=== PATIENT | female | born 1960 | race Caucasian/White ===

== ENCOUNTER → 2020-12-11 | Outpatient (CLI) | payer MEDICARE, OTHER | END | disposition home or self-care (01) | DX: Z01.818 Encounter for other preprocedural examination (principal) ==

== ENCOUNTER 2021-11-04 07:39 | Day surgery (SDC) | payer MEDICARE, OTHER ==
[2021-11-03 10:42] VITALS: BMI 34.2
[~2021-11-04 07:39] MED LIST: ALPRAZolam 0.25 MG TAB PO PRN; ALPRAZolam 0.5 MG TAB PO PRN; ASPIRIN 325 MG TAB PO STA; NITROGLYCERIN SL TABS 0.4 MG TAB SUBLINGUAL PRN; SODIUM CHLORIDE 0.9% 1,000 ML in EMPTY BAG 1 BAG IV SCH
[2021-11-04 08:14] LABS: Glucose,Whole Blood 120 mg/dL (75-99)
[2021-11-04 08:14] LABS: Basophils # (A) 0.1 k/uL (0-0.2); Basophils % (A) 1 %; Eosinophils # (A) 0.3 k/uL (0-0.7); Eosinophils % (A) 5 %; HCT 42.7 % (34.0-46.0); HGB 14.4 gm/dL (11.4-16.0); Lymphocytes # (A) 2.1 k/uL (1.0-4.8); Lymphocytes % (A) 32 %; MCH 30.4 pg (25.0-35.0); MCHC 33.8 g/dL (31.0-37.0); MCV 89.7 fL (80.0-100.0); Mean Platelet Volume 9.2; Monocytes # (A) 0.4 k/uL (0-1.0); Monocytes % (A) 6 %; Neutrophils # (A) 3.6 k/uL (1.3-7.7); Neutrophils % (A) 54 %; Platelet Count 220 k/uL (150-450); RBC 4.76 m/uL (3.80-5.40); RDW 13.3 % (11.5-15.5); WBC 6.7 k/uL (3.8-10.6)
[2021-11-04 08:27] LABS: Calcium 8.9 mg/dL (8.4-10.2); Potassium 3.8 mmol/L (3.5-5.1)
[2021-11-04 09:04] VITALS: RESP 16; TEMP 97.6
[2021-11-04] MEDS ORDERED: VERAPAMIL 2.5 MG/ML 2 ML AMP ONE (09:06)
[2021-11-04] MEDS ORDERED: fentaNYL (PF) 50 MCG/ML 2 ML AMP ONE (09:19)
[2021-11-04] MEDS ORDERED: HEPARIN SODIUM 1,000 UN/ML (10ML VL) ONE (09:19)
[2021-11-04] MEDS ORDERED: fentaNYL (PF) 50 MCG/ML 2 ML AMP IV ONE (09:39)
[2021-11-04] MEDS ORDERED: MIDAZOLAM 2 MG/2 ML VIAL IV ONE (09:39)
[2021-11-04] MEDS ORDERED: LIDOCAINE 1% INJ 10MG/ML (5 ML VIAL-PF) SQ ONE (09:40)
[2021-11-04] MEDS: VERAPAMIL SYRINGE (5 MG/10 ML) INTRAARTER ONE ×2 (09:47→09:52)
[2021-11-04] MEDS ORDERED: HEPARIN SODIUM 1,000 UN/ML (10ML VL) IV ONE (09:49)
[2021-11-04] MEDS ORDERED: IOPAMIDOL-370 125ML BTL INJ ONE (09:56)
--- NOTE | 2021-11-04 10:02 | P.CARDCATH ---
Description of Procedure: PROCEDURES PERFORMED: Left heart catheterization, bilateral coronary angiography INDICATION: Abnormal stress test CONSENT:I have discussed the risks, benefits and alternative therapies for the above-mentioned procedure and for both sedation/analgesia as well as necessary blood product administration, if indicated, as they pertain to this patient. The patient has indicated understanding and acceptance of the risks and procedures discussed. PROCEDURE: After the risks, benefits and alternatives of the above mentioned procedure explained in detail with the patient, informed consent was obtained. Patient was taken to the catheterization lab and prepped and draped in usual fashion. 1% lidocaine was used to anesthetize the right radial artery. A 6- [place] sheath was placed in the right radial artery using modified Seldinger technique. Left coronary angiography was performed with a 5-[place] JL 3.5 catheter and right coronary angiography was performed with a 5-[place] JR5 catheter in various views. A 5-[place] FR5 catheter was inserted into the left ventricle and pressure measurements were obtained. The right radial sheath was removed and a TR band was placed with hemostasis achieved. The patient tolerated the procedure well. Patient was transported back to the post catheterization holding area in stable condition. Conscious Sedation: Patient was monitored under the direct supervision of vision of myself for conscious sedation using Versed and fentanyl for a total duration of 16 minutes HEMODYNAMICS: Ao: 139/71 LV: 134/3, LBEDP 21 SELECTIVE CORONARY ARTERIOGRAPHY: LEFT MAIN: The left main is a large caliber vessel which bifurcates into the LAD and circumflex. There is no significant stenosis. LEFT ANTERIOR DESCENDING CORONARY ARTERY: LAD is a large caliber vessel which wraps around to the apex. There is no significant stenosis. LEFT CIRCUMFLEX CORONARY ARTERY: Left circumflex is a moderate caliber vessel without significant stenosis. RIGHT CORONARY ARTERY: The right coronary artery is a large caliber vessel which gives off a PDA and PLV branch and is the dominant vessel. There is no signif icant stenosis. FINAL IMPRESSION: 1. Normal coronary arteries as described above. 2. Elevated left sided filling pressures PLAN: 1. Aggressive risk factor modification per most recent ACC/AHA guidelines. 2. Follow-up in the office in 1-2 weeks. 3. Trial Lasix given elevated left sided filling pressures.
[2021-11-04 15:16] VITALS: BP 156/67; PULSE 66
== END 2021-11-04 14:03 | disposition home or self-care (01) ==
LOC: CATHCVL 07:39
PROVIDERS: ATTEND Internal Medicine
DX: I50.1 Left ventricular failure, unspecified (principal); Z20.822 Contact with and (suspected) exposure to COVID-19
CPT/HCPCS: 93458; 80048; 85025; 87635; C1894; J2250; J2001; J3010; J1644; Q9967

== ENCOUNTER → 2022-04-23 | Outpatient (CLI) | payer MEDICARE, OTHER ==
--- NOTE | 2022-04-23 16:12 | XR ---
EXAMINATION TYPE: XR chest 2V DATE OF EXAM: 04/23/2022 COMPARISON: 12/11/2020 HISTORY: Shortness of breath TECHNIQUE: Frontal and lateral views of the chest are obtained. FINDINGS: Scattered senescent parenchymal changes noted. Hyperinflation compatible with COPD. No evidence for infiltrate. No evidence for atelectasis. Heart size is stable. Mediastinal structures are stable and grossly unremarkable. No evidence for hilar prominence. Degenerative changes dorsal spine. IMPRESSION: 1. No evidence for acute pulmonary disease.
== END | disposition home or self-care (01) ==
LOC: RADXRMAIN 14:19
PROVIDERS: ATTEND Internal Medicine
DX: J04.2 Acute laryngotracheitis (principal)
CPT/HCPCS: 71046

== ENCOUNTER → 2022-08-31 | Outpatient (CLI) | payer MEDICARE, OTHER ==
--- NOTE | 2022-09-01 07:28 | XR ---
EXAMINATION TYPE: XR ankle complete RT DATE OF EXAM: 08/31/2022 COMPARISON: None HISTORY: Pain lateral right ankle TECHNIQUE: 3 view right ankle FINDINGS: Ankle mortise is intact. No acute fractures or dislocations are evident. Soft tissues appea r normal. Follow up exams can be performed 7-10 days from acute trauma for continued pain IMPRESSION: 1. No acute osseous abnormality right ankle.
== END | disposition home or self-care (01) ==
LOC: RADXRMAIN 15:57
PROVIDERS: ATTEND Internal Medicine
DX: M25.571 Pain in right ankle and joints of right foot (principal)

== ENCOUNTER → 2022-09-01 | Outpatient (CLI) | payer MEDICARE, OTHER ==
[2022-09-01 17:04] LABS: ALT 18 U/L (8-44); AST 13 U/L (13-35); African American GFR (CKD) 80.5 (60.0-200.0); Albumin 4.7 g/dL (3.8-4.9); Albumin/Globulin Ratio 1.74 (1.60-3.17); Alkaline Phosphatase 108 U/L (41-126); BUN/Creat Ratio 16.67 Ratio (12.00-20.00); Carbon Dioxide 22.3 mmol/L (20.0-27.5); Chloride 105 mmol/L (96-109); Chol/HDL Ratio 2.59 Ratio; Globulin 2.7 g/dL (1.6-3.3); Glucose 124 mg/dL (70-110); LDL Cholesterol,Calculated 83.7 mg/dL (0.0-131.0); Non-African American GFR(CKD) 69.5 (60.0-200.0); Potassium 4.4 mmol/L (3.5-5.5); Sodium 142 mmol/L (135-145); Total Protein 7.4 g/dL (6.2-8.2); VLDL Calculation 13.78 mg/dL (5.00-40.00)
[2022-09-01 17:26] LABS: Basophils # (A) 0.07 X 10*3/uL (0.00-0.10); Basophils % (A) 0.6 %; Eosinophils # (A) 0.08 X 10*3/uL (0.04-0.35); Eosinophils % (A) 0.7 %; HCT 46.8 % (37.2-46.3); HGB 15.5 g/dL (12.0-15.0); Immature Grans, Automated 0.3 %; Lymphocytes # (A) 1.74 X 10*3/uL (0.90-5.00); Lymphocytes % (A) 14.6 %; MCH 30.1 pg (27.0-32.0); MCHC 33.1 g/dL (32.0-37.0); MCV 90.9 fL (80.0-97.0); Mean Platelet Volume 12.4 fL (9.5-12.2); Monocytes # (A) 0.68 X 10*3/uL (0.20-1.00); Monocytes % (A) 5.7 %; NRBC Per 100 WBC 0 /100 WBCS (0.0-0.0); Neutrophils # (A) 9.32 X 10*3/uL (1.80-7.70); Neutrophils % (A) 78.1 %; Platelet Count 259 X 10*3/uL (140-440); RBC 5.15 X 10*6/uL (4.10-5.20); RDW 12.8 % (11.5-14.5); WBC 11.93 X 10*3/uL (4.50-10.00)
== END | disposition home or self-care (01) ==
LOC: LABWHC1 09:53
PROVIDERS: ATTEND Internal Medicine
DX: Z00.00 Encounter for general adult medical examination without abnormal findings (principal); Z11.59 Encounter for screening for other viral diseases; M85.80 Other specified disorders of bone density and structure, unspecified site; R73.03 Prediabetes
CPT/HCPCS: 36415; 80053; 80061; 82306; 83036; 84443; 85025; 86803

== ENCOUNTER 2023-01-27 20:08 | Emergency (ER) | payer MEDICARE, OTHER ==
[2023-01-27 20:43] LABS: Glucose,Whole Blood 108 mg/dL (70-110)
[2023-01-27] MEDS ORDERED: SODIUM CHLORIDE 0.9% 1,000 ML IV STA (21:36)
--- NOTE | 2023-01-27 21:36 | ED ---
Weakness HPI - General Chief complaint: Neuro Symptoms/Deficit Stated complaint: Abn Labs Time Seen by Provider: 01/27/23 21:23 Source: patient, RN notes reviewed, old records reviewed Mode of arrival: ambulatory Limitations: no limitations - History of Present Illness Initial comments: This is a 62-year-old female presenting for evaluation regards to weakness and cause of weakness. Recent weight loss decreased activity level and overall not feeling well. Patient has no recent travel history no sick contacts severe cough or congestion she does have remote history of breast cancer with recurrence. Patient is concern for further recurrence of cancer. Maybe a thyroid issue. MD Complaint: generalized weakness (Weight loss), lack of energy, difficulty walking -: week(s) Severity: moderate Consistency: constant Improves with: none Worsens with: none Context: history of similar Associated Symptoms: denies other symptoms - Related Data Home Medications Medication Instructions Recorded Confirmed Acetaminophen [Tylenol] 325 mg PO Q4H PRN 11/03/21 11/03/21 Ascorbic Acid [Vitamin C] 1,000 mg PO DAILY 11/03/21 11/04/21 Aspirin 325 mg PO HS 11/03/21 11/04/21 Atorvastatin [Lipitor] 20 mg PO HS 11/03/21 11/04/21 Butalb/Asprin/Caff 50-325-40Mg 1 - 2 cap PO Q4HR PRN 11/03/21 11/04/21 [Fiorinal 50-325-40 MG] Cholecalciferol [Vitamin D3 (25 50 mcg PO BID 11/03/21 11/04/21 Mcg = 1000 Iu)] Cyanocobalamin (Vitamin B-12) 1,000 mcg PO DAILY 11/03/21 11/04/21 [Vitamin B-12] Cyclobenzaprine [Flexeril] 5 mg PO TID PRN 11/03/21 11/03/21 DULoxetine HCL [Cymbalta] 60 mg PO BID 11/03/21 11/04/21 Diclofenac Sodium Gel [Voltaren 2 gm TOPICAL QID PRN 11/03/21 11/03/21 Gel] Famotidine [Pepcid] 20 mg PO HS 11/03/21 11/04/21 Fluticasone Nasal [place] [Flonase 1 spray EA NOSTRIL BID 11/03/21 11/04/21 Nasal [place]] Immune Support Complex 1 cap PO BID 11/03/21 11/04/21 Loratadine [Claritin] 10 mg PO HS 11/03/21 11/04/21 Loratadine [Claritin] 30 mg PO QAM 11/03/21 11/04/21 Meclizine [Antivert] 12.5 mg PO DIRECTED PRN 11/03/21 11/03/21 Montelukast Sodium [Singulair] 10 mg PO DAILY 11/03/21 11/04/21 Naproxen [Naprosyn] 500 mg PO Q12H PRN 11/03/21 11/04/21 hydrOXYzine HCL [Atarax] 10 mg PO DAILY 11/03/21 11/04/21 metFORMIN HCL 500 mg PO BID 11/03/21 11/04/21 Previous Rx's Medication Instructions Recorded Furosemide [Lasix] 20 mg PO DAILY #90 tab 11/04/21 Allergies Allergy/AdvReac Type Severity Reaction Status Date / Time hydrocodone [From [place]] Allergy [place] Verified 01/27/23 20:33 ondansetron [From Zofran] Allergy Headache Verified 01/27/23 20:33 Review of Systems ROS Statement: Those systems with pertinent positive or pertinent negative responses have been documented in the HPI. ROS Other: All systems not noted in ROS Statement are negative. Past Medical History Past Medical History: Cancer, Diabetes Mellitus, Hyperlipidemia, Thyroid Disorder Additional Past Medical History / Comment(s): See Dr Nugent's H&P. Abnormal stress test. Hx breast cancer X3, last in 2014, had radiation X3, chemo. Pre- Diabetes. Migraines. Lymphedema left arm, no needles or BP's on left arm. History of Any Multi-Drug Resistant Organisms: None Reported Past Surgical History: Breast Surgery, Orthopedic Surgery Additional Past Surgical History / Comment(s): Double mastectomy with re- construction. Ovaries and fallopian tubes removed. Neck surgery - discectomy with cadaver bone placed. Past Anesthesia/Blood Transfusion Reactions: No Reported Reaction Past Psychological History: Anxiety Smoking Status: Never smoker Past Alcohol Use History: Rare Past Drug Use History: None Reported - Past Family History Mother Family Medical History: Cancer Father Family Medical History: Cancer Brother(s) Family Medical History: Cancer Additional Family Medical History / Comment(s): Skin cancer. Sister(s) Family Medical History: Cancer Additional Family Medical History / Comment(s): Skin cancer. General Exam Limitations: no limitations General appearance: alert, in no apparent distress Head exam: Present: atraumatic, normocephalic, normal inspection Eye exam: Present: normal appearance, PERRL, EOMI. Absent: scleral icterus, conjunctival injection, periorbital swelling ENT exam: Present: normal exam, mucous membranes moist Neck exam: Present: normal inspection. Absent: tenderness, meningismus, lymphadenopathy Respiratory exam: Present: normal lung sounds bilaterally. Absent: respiratory distress, wheezes, rales, rhonchi, stridor Cardiovascular Exam: Present: normal rhythm, tachycardia, normal heart sounds. Absent: systolic murmur, diastolic murmur, rubs, gallop, clicks GI/Abdominal exam: Present: soft, normal bowel sounds. Absent: distended, tenderness, guarding, rebound, rigid Extremities exam: Present: normal inspection, full ROM, normal capillary refill. Absent: tenderness, pedal edema, joint swelling, calf tenderness Back exam: Present: normal inspection Neurological exam: Present: alert, oriented X3, CN II-XII intact Psychiatric exam: Present: normal affect, normal mood Skin exam: Present: warm, dry, intact, normal color. Absent: rash Course Vital Signs 01/27/23 01/27/23 01/28/23 20:27 23:21 01:01 Temperature 98.7 F 97.5 F L 98.2 F Pulse Rate 108 H 69 Respiratory 20 18 Rate Blood Pressure 150/82 151/78 O2 Sat by Pulse 93 L 98 Oximetry - Reevaluation(s) Reevaluation #1: 01/28/23 00:43 Medical record is reviewed Reevaluation #2: 01/28/23 00:44 Patient symptoms unchanged Reevaluation #3: 01/28/23 00:44 Patient informed results questions answered Reevaluation #4: 01/27/23 22:46 Was pt. sent in by a medical professional or institution (, PA, CLINICAL SERVICES ASSISTANT, urgent care, hospital, or longterm...) When possible be specific @ -no Did you speak to anyone other than the patient for history (EMS, parent, family, police, friend...)? What history was obtained from this source @ -no Did you review nursing and triage notes (agree or disagree)? Why? @ -agree Are old charts reviewed (outside hosp., previous admission, EMS record, old EKG, old radiological studies, urgent care reports/EKG's, longterm records)? Report findings @ -yes Differential Diagnosis (chest pain, altered mental status, abdominal pain women, abdominal pain men, vaginal bleeding, weakness, fever, dyspnea, syncope, headache, dizziness, GI bleed, back pain, seizure, CVA, palpatations, mental health, musculoskeletal)? @ -prior EKG interpreted by me (3pts min.). @ -yes X-rays interpreted by me (1pt min.). @ -yes CT interpreted by me (1pt min.). @ -no U/S interpreted by me (1pt. min.). @ -no What testing was considered but not performed or refused? (CT, X-rays, U/S, labs)? Why? @ -none What meds were considered but not given or refused? Why? @ -none Did you discuss the management of the patient with other professionals (professionals i.e. , PA, CLINICAL SERVICES ASSISTANT, lab, RT, psych nurse, social scientist, vacuum applicator operator, teacher, medical information officer, adult protective caseworker)? Give summary @ -no Was smoking cessation discussed for >3mins.? @ -no Was critical care preformed (if so, how long)? @ -no Were there social determinants of health that impacted care today? How? (Homelessness, low income, unemployed, alcoholism, drug addiction, transportation, low edu. Level, literacy, decrease access to med. care, nursing home, rehab)? @ -none Was there de-escalation of care discussed even if they declined (Discuss DNR or withdrawal of care, Hospice)? DNR status @ -no What co-morbidities impacted this encounter? (DM, HTN, Smoking, COPD, CAD, Cancer, CVA, ARF, Chemo, Hep., AIDS, mental health diagnosis, sleep apnea, morbid obesity)? @ -none Was patient admitted / discharged? Hospital course, mention meds given and route, prescriptions, significant lab abnormalities, going to OR and other pertinent info. @ - 62 female to the emergency department for evaluation over concerns of recurrent cancer, breast cancer history with recurrence will treat seen 2014. Patient presents with increasing weight loss decreased activity level and fatigue. No significant findings represented patient symptoms are found here in the ER she can be discharged home discharged Undiagnosed new problem with uncertain prognosis? @ -no Drug Therapy requiring intensive monitoring for toxicity (Heparin, Nitro, Insulin, Cardizem)? @ -no Were any procedures done? @ -no Diagnosis/symptom? @ - Acute, or Chronic, or Acute on Chronic? @ -Acute Uncomplicated (without systemic symptoms) or Complicated (systemic symptoms)? @ -Complicated Side effects of treatment? @ -no Exacerbation, Progression, or Severe Exacerbation? @ -exacerbation Poses a threat to life or bodily function? How? (Chest pain, [place], FL, pneumonia, PE, COPD, DKA, ARF, appy, cholecystitis, CVA, Diverticulitis, Homicidal, Suicidal, threat to staff... and all critical care pts) @ -yes Reevaluation #5: 01/28/23 00:44 Differential Weakness: Hypoglycemia, shock, sepsis, hyponatremia, anemia, infection, [place], ETOH, adverse medicine reaction, overdose, stroke, this is not meant to be an all-inclusive list. EKG Findings - EKG Comments: EKG Findings:: EKG sinus 79 NH 138 QRS 85 QTC 394 - EKG Results: EKG: interpreted by STEFANIE Medical Decision Making - Medical Decision Making 62 female to the emergency department for evaluation over concerns of recurrent cancer, breast cancer history with recurrence will treat seen 2014. Patient presents with increasing weight loss decreased activity level and fatigue. No significant findings represented patient symptoms are found here in the ER she can be discharged home - Lab Data Result diagrams: 01/27/23 21:40 01/27/23 21:40 Lab Results 01/27/23 01/27/23 01/27/23 Range/Units 20:42 21:40 21:40 WBC 8.7 (3.8-10.6) k/uL RBC 5.09 (3.80-5.40) m/uL Hgb 15.2 (11.4-16.0) gm/dL Hct 46.3 H (34.0-46.0) % MCV 90.9 (80.0-100.0) fL MCH 29.9 (25.0-35.0) pg MCHC 32.9 (31.0-37.0) g/dL RDW 13.1 (11.5-15.5) % Plt Count 234 (150-450) k/uL MPV 10.7 Neutrophils % 67 % Lymphocytes % 25 % Monocytes % 5 % Eosinophils % 1 % Basophils % 0 % Neutrophils # 5.8 (1.3-7.7) k/uL Lymphocytes # 2.2 (1.0-4.8) k/uL Monocytes # 0.4 (0-1.0) k/uL Eosinophils # 0.1 (0-0.7) k/uL Basophils # 0.0 (0-0.2) k/uL PT 10.2 (9.0-12.0) sec INR 1.0 (<1.2) APTT 25.1 (22.0-30.0) sec Sodium (137-145) mmol/L Potassium (3.5-5.1) mmol/L Chloride (98-107) mmol/L Carbon Dioxide (22-30) mmol/L Anion Gap mmol/L BUN (7-17) mg/dL Creatinine (0.52-1.04) mg/dL Est GFR (CKD-EPI)AfAm (>60 ml/min/1.73 sqM) Est GFR (CKD-EPI)NonAf (>60 ml/min/1.73 sqM) Glucose (74-99) mg/dL POC Glucose (mg/dL) 108 (70-110) mg/dL POC Glu Nuclear Control Room Operator Taryn Landaverdeey Plasma Lactic Acid Solo (0.7-2.0) mmol/L Calcium (8.4-10.2) mg/dL Phosphorus (2.5-4.5) mg/dL Magnesium (1.6-2.3) mg/dL Total Bilirubin (0.2-1.3) mg/dL AST (14-36) U/L ALT (4-34) U/L Alkaline Phosphatase (38-126) U/L Troponin I (0.000-0.034) ng/mL NT-Pro-B Natriuret Pep pg/mL Total Protein (6.3-8.2) g/dL Albumin (3.5-5.0) g/dL TSH (0.465-4.680) mIU/L Free T4 (0.78-2.19) ng/dL Urine Color Urine Appearance (Clear) Urine pH (5.0-8.0) Ur Specific [place] (1.001-1.035) Urine Protein (Negative) Urine Glucose (UA) (Negative) Urine Ketones (Negative) Urine Blood (Negative) Urine Nitrite (Negative) Urine Bilirubin (Negative) Urine Urobilinogen (<2.0) mg/dL Ur Leukocyte Esterase (Negative) 01/27/23 01/27/23 01/27/23 Range/Units 21:40 21:40 21:40 WBC (3.8-10.6) k/uL RBC (3.80-5.40) m/uL Hgb (11.4-16.0) gm/dL Hct (34.0-46.0) % MCV (80.0-100.0) fL MCH (25.0-35.0) pg MCHC (31.0-37.0) g/dL RDW (11.5-15.5) % Plt Count (150-450) k/uL MPV Neutrophils % % Lymphocytes % % Monocytes % % Eosinophils % % Basophils % % Neutrophils # (1.3-7.7) k/uL Lymphocytes # (1.0-4.8) k/uL Monocytes # (0-1.0) k/uL Eosinophils # (0-0.7) k/uL Basophils # (0-0.2) k/uL PT (9.0-12.0) sec INR (<1.2) APTT (22.0-30.0) sec Sodium 140 (137-145) mmol/L Potassium 4.0 (3.5-5.1) mmol/L Chloride 110 H (98-107) mmol/L Carbon Dioxide 20 L (22-30) mmol/L Anion Gap 10 mmol/L BUN 20 H (7-17) mg/dL Creatinine 0.73 (0.52-1.04) mg/dL Est GFR (CKD-EPI)AfAm >90 (>60 ml/min/1.73 sqM) Est GFR (CKD-EPI)NonAf >90 (>60 ml/min/1.73 sqM) Glucose 110 H (74-99) mg/dL POC Glucose (mg/dL) (70-110) mg/dL POC Glu Nuclear Control Room Operator ID Plasma Lactic Acid Solo 0.6 L (0.7-2.0) mmol/L Calcium 9.9 (8.4-10.2) mg/dL Phosphorus 3.9 (2.5-4.5) mg/dL Magnesium 2.1 (1.6-2.3) mg/dL Total Bilirubin 0.5 (0.2-1.3) mg/dL AST 23 (14-36) U/L ALT 23 (4-34) U/L Alkaline Phosphatase 98 (38-126) U/L Troponin I <0.012 (0.000-0.034) ng/mL NT-Pro-B Natriuret Pep 48 pg/mL Total Protein 7.7 (6.3-8.2) g/dL Albumin 4.6 (3.5-5.0) g/dL TSH 0.189 L (0.465-4.680) mIU/L Free T4 (0.78-2.19) ng/dL Urine Color Urine Appearance (Clear) Urine pH (5.0-8.0) Ur Specific [place] (1.001-1.035) Urine Protein (Negative) Urine Glucose (UA) (Negative) Urine Ketones (Negative) Urine Blood (Negative) Urine Nitrite (Negative) Urine Bilirubin (Negative) Urine Urobilinogen (<2.0) mg/dL Ur Leukocyte Esterase (Negative) 01/27/23 01/27/23 Range/Units 21:40 22:43 WBC (3.8-10.6) k/uL RBC (3.80-5.40) m/uL Hgb (11.4-16.0) gm/dL Hct (34.0-46.0) % MCV (80.0-100.0) fL MCH (25.0-35.0) pg MCHC (31.0-37.0) g/dL RDW (11.5-15.5) % Plt Count (150-450) k/uL MPV Neutrophils % % Lymphocytes % % Monocytes % % Eosinophils % % Basophils % % Neutrophils # (1.3-7.7) k/uL Lymphocytes # (1.0-4.8) k/uL Monocytes # (0-1.0) k/uL Eosinophils # (0-0.7) k/uL Basophils # (0-0.2) k/uL PT (9.0-12.0) sec INR (<1.2) APTT (22.0-30.0) sec Sodium (137-145) mmol/L Potassium (3.5-5.1) mmol/L Chloride (98-107) mmol/L Carbon Dioxide (22-30) mmol/L Anion Gap mmol/L BUN (7-17) mg/dL Creatinine (0.52-1.04) mg/dL Est GFR (CKD-EPI)AfAm (>60 ml/min/1.73 sqM) Est GFR (CKD-EPI)NonAf (>60 ml/min/1.73 sqM) Glucose (74-99) mg/dL POC Glucose (mg/dL) (70-110) mg/dL POC Glu Nuclear Control Room Operator ID Plasma Lactic Acid Solo (0.7-2.0) mmol/L Calcium (8.4-10.2) mg/dL Phosphorus (2.5-4.5) mg/dL Magnesium (1.6-2.3) mg/dL Total Bilirubin (0.2-1.3) mg/dL AST (14-36) U/L ALT (4-34) U/L Alkaline Phosphatase (38-126) U/L Troponin I (0.000-0.034) ng/mL NT-Pro-B Natriuret Pep pg/mL Total Protein (6.3-8.2) g/dL Albumin (3.5-5.0) g/dL TSH (0.465-4.680) mIU/L Free T4 1.17 (0.78-2.19) ng/dL Urine Color Light Yellow Urine Appearance Clear (Clear) Urine pH 6.0 (5.0-8.0) Ur Specific [place] 1.011 (1.001-1.035) Urine Protein Negative (Negative) Urine Glucose (UA) Negative (Negative) Urine Ketones Negative (Negative) Urine Blood Negative (Negative) Urine Nitrite Negative (Negative) Urine Bilirubin Negative (Negative) Urine Urobilinogen <2.0 (<2.0) mg/dL Ur Leukocyte Esterase Negative (Negative) - Radiology Data Radiology results: report reviewed (CT brain chest of the abdomen pelvis nega tive for acute disease), image reviewed Disposition Clinical Impression: Weakness Disposition: HOME SELF-CARE Condition: Good Instructions (If sedation given, give patient instructions): Weakness (ED) Is patient prescribed a controlled substance at d/c from ED?: No Referrals: Juan Herring MD [Primary Care Provider] - 1-2 days Time of Disposition: 00:45
[2023-01-27 22:34] LABS: ALT 23 U/L (4-34); AST 23 U/L (14-36); African American GFR (CKD) >90 (>60 ml/min/1.73 sqM); Albumin 4.6 g/dL (3.5-5.0); Alkaline Phosphatase 98 U/L (38-126); Anion Gap 10 mmol/L; Basophils % (A) 0 %; Blood Urea Nitrogen 20 mg/dL (7-17); Calcium 9.9 mg/dL (8.4-10.2); Carbon Dioxide 20 mmol/L (22-30); Chloride 110 mmol/L (98-107); Eosinophils # (A) 0.1 k/uL (0-0.7); Eosinophils % (A) 1 %; Glucose 110 mg/dL (74-99); HCT 46.3 % (34.0-46.0); HGB 15.2 gm/dL (11.4-16.0); Lymphocytes # (A) 2.2 k/uL (1.0-4.8); Lymphocytes % (A) 25 %; MCH 29.9 pg (25.0-35.0); MCHC 32.9 g/dL (31.0-37.0); MCV 90.9 fL (80.0-100.0); Magnesium 2.1 mg/dL (1.6-2.3); Mean Platelet Volume 10.7; Monocytes # (A) 0.4 k/uL (0-1.0); Monocytes % (A) 5 %; Neutrophils # (A) 5.8 k/uL (1.3-7.7); Neutrophils % (A) 67 %; Non-African American GFR(CKD) >90 (>60 ml/min/1.73 sqM); Phosphorus 3.9 mg/dL (2.5-4.5); Platelet Count 234 k/uL (150-450); RBC 5.09 m/uL (3.80-5.40); RDW 13.1 % (11.5-15.5); Sodium 140 mmol/L (137-145); Total Bilirubin 0.5 mg/dL (0.2-1.3); Total Protein 7.7 g/dL (6.3-8.2); WBC 8.7 k/uL (3.8-10.6)
[2023-01-27 22:38] LABS: Partial Thromboplastin Time 25.1 sec (22.0-30.0); Prothrombin Time 10.2 sec (9.0-12.0)
[2023-01-27 22:41] LABS: NT-Pro-B-Type Natriuretic Pept 48 pg/mL
--- NOTE | 2023-01-27 23:02 | CT ---
EXAMINATION TYPE: CT brain wo con CT DLP: 1041.7 mGycm, Automated exposure control for dose reduction was used. DATE OF EXAM: 01/27/2023 10:58 PM COMPARISON: None. Prior CT Brain from . CLINICAL INDICATION:Female, 62 years old with history of weakness, NEURO DEFICITS TECHNIQUE: Brain: Multiple axial CT images of the brain were obtained without IV contrast. FINDINGS: Brain: Extra-axial spaces: No abnormal extra-axial fluid collections. Ventricular system: Within normal limits Cerebral parenchyma: No acute intraparenchymal hemorrhage or mass effect. The [place]-white junction is well differentiated. Cerebellum: Unremarkable. Mass effect: No evidence of midline shift. Intracranial vasculature: unremarkable Soft tissues: Normal. Calvarium/osseous structures: No depressed skull fracture. Paranasal sinuses and mastoid air cells: The mastoid air cells are clear. Likely mucous retention cys t within the inferior left rectus sinus measuring up to 1.4 cm. Aplasia of the left frontal sinus. Visualized orbits: Orbital contents are intact. IMPRESSION: No acute intracranial process.
--- NOTE | 2023-01-27 23:20 | CT ---
EXAMINATION TYPE: CT ChestAbdPelvis w con CT DLP: 1102.4 mGycm, Automated exposure control for dose reduction was used. DATE OF EXAM: 01/27/2023 11:09 PM COMPARISON: Chest radiograph 04/23/2022 CLINICAL INDICATION:Female, 62 years old with history of pain; PHH, PAIN Technique: Multiple axial images of the chest, abdomen, and pelvis were obtained following the intrav enous administration of 100 mL Isovue-300. Two-dimensional coronal and sagittal reconstructions were obtained. Findings: CHEST: LUNGS/ PLEURA: No focal consolidation, pneumothorax, pleural effusion. No suspicious pulmonary nodule s or masses. AIRWAY: Patent and unremarkable.. HEART: Size within normal limits. No pericardial effusion. MEDIASTINUM: No gross evidence of adenopathy. VASCULATURE: No aortic aneurysm. MUSCULOSKELETAL: Mild disc degeneration changes are present throughout the thoracolumbar spine. No ac [place] osseous abnormality. Anterior cervical fusion hardware partially visualized. SOFT TISSUES/LYMPH NODES: Surgical clips along both pectoral muscles. LOWER NECK: No significant findings. ABDOMEN: ABDOMEN LIVER: Unremarkable GALLBLADDER AND BILE DUCTS: Unremarkable. PANCREAS: Unremarkable. SPLEEN: Unremarkable. ADRENAL GLANDS: Unremarkable. KIDNEYS AND URETERS: No evidence of hydronephrosis or renal calculus. The kidneys enhance symmetrical ly. Contrast is demonstrated within both collecting systems on the delayed phase. PELVIS BLADDER: Unremarkable REPRODUCTIVE: Unremarkable. ABDOMEN & PELVIS STOMACH AND BOWEL: Small hiatal hernia, duodenum is unremarkable. No focal wall thickening or surroun ding inflammatory changes. Mild colonic stool burden. Submucosal fat deposition within the terminal i leum. The appendix is within normal limits. No evidence of bowel obstruction. PERITONEUM: No evidence of pneumoperitoneum or free fluid. VASCULATURE: Mild atherosclerotic calcifications are present throughout the abdominal aorta and its b ranches. No abdominal aortic aneurysm. Few pelvic phleboliths. MUSCULOSKELETAL: No acute osseous abnormalities LYMPH NODES: No gross evidence for lymphadenopathy. SOFT TISSUE/ABDOMINAL WALL: Postsurgical changes of the anterior abdominal wall with mesh. No organiz ed fluid collection. IMPRESSION: No acute process within the chest, abdomen or pelvis.
[2023-01-27 23:25] VITALS: BP 151/78; PULSE 69; RESP 18
[2023-01-28 00:06] LABS: Appearance,Urine Clear (Clear); Bilirubin,Urine Negative (Negative); Blood,Urine Negative (Negative); Color,Urine Light Yellow; Glucose,Urine (UA) Negative (Negative); Ketones,Urine Negative (Negative); Leukocyte Esterase,Urine Negative (Negative); Nitrite,Urine Negative (Negative); Protein,Urine Negative (Negative); Specific Gravity,Urine 1.011 (1.001-1.035); Urobilinogen,Urine <2.0 mg/dL (<2.0)
[2023-01-28 01:02] VITALS: TEMP 98.2
== END 2023-01-28 01:03 | disposition home or self-care (01) ==
LOC: EC 20:08
DX: R53.1 Weakness (principal); E11.9 Type 2 diabetes mellitus without complications; E78.5 Hyperlipidemia, unspecified; F41.9 Anxiety disorder, unspecified; Z79.84 Long term (current) use of oral hypoglycemic drugs; Z79.82 Long term (current) use of aspirin; Z79.51 Long term (current) use of inhaled steroids; Z79.899 Other long term (current) drug therapy; Z88.5 Allergy status to narcotic agent; Z88.8 Allergy status to other drugs, medicaments and biological substances
CPT/HCPCS: 36415; 93005; 84439; 83880; 80053; 83605; 83735; 84100; 84443; 84484; 85025; 85610; 85730; 81003; 70450; 71260; 74177; 99285; 96360; Q9967